=== PATIENT | female | born 1960 | race Caucasian/White ===

== ENCOUNTER 2018-12-16 11:15 | Emergency (ER) | payer BC, OTHER, SELFPAY ==
[2018-12-16] VITALS (35 sets, daily range): BP systolic 123–156; BP diastolic 74–125; PULSE 67–114; RESP 10–25; TEMP 36.6; O2SAT 95–99
[2018-12-16] MEDS: Normal Saline 1,000 ML 1000 ML IV (11:58)
[2018-12-16 12:21] LABS: Abs Immature Grans 0.02 k/cumm (0.0-0.09); Absolute Basophil Count 0.03 k/cumm (0.0-0.2); Absolute Eosinophil Count 0.08 k/cumm (0.0-0.7); Absolute Lymphocyte Count 1.98 k/cumm (1.2-3.4); Absolute Monocyte Count 0.36 k/cumm (0.11-0.7); Absolute Neutrophil Count 3.94 k/cumm (1.2-6.7); Basophils % 0.5; Eosinophils % 1.2; HCT 38.5 % (36.0-46.0); Immature Grans % 0.3; Lymphocytes % 30.9; Mean Corp. HGB Concentration 36.4 g/dL (32.0-36.0); Mean Corpuscular Hemoglobin 33.9 pg (27.0-33.0); Mean Corpuscular Volume 93.2 fL (80-95); Mean Platelet Volume 9.3 fL (8.0-11.0); Monocytes % 5.6; Neutrophils % 61.5; Platelet Count 331 x1000/uL (130-400); RBC 4.13 m/cumm (4.00-5.20); RBC Distribution Width 11.9 % (11.7-14.6); White Blood Cell Count 6.41 k/cumm (4.4-10.8)
[2018-12-16 12:46] LABS: ALT 35 U/L (14-59); AST 14 U/L (15-37); Albumin 3.9 g/dL (3.4-5.0); Alkaline Phosphatase 53 U/L (46-116); Anion Gap 11.7 mmol/L (3-11); BUN 17 mg/dL (7-18); Bilirubin, Total 0.4 mg/dL (0.2-1.0); CO2 25.3 mmol/L (21.0-32.0); CREATININE 0.82 mg/dL (0.55-1.02); Calcium 8.8 mg/dL (8.5-10.1); Chloride 98 mmol/L (98-107); Glucose 144 mg/dL (70-100); Magnesium 1.7 mg/dL (1.8-2.4); Potassium 3.4 mmol/L (3.5-5.1); Sodium 135 mmol/L (136-145); Total Protein 7.1 g/dL (6.4-8.2)
[2018-12-16 12:48] LABS: Troponin I < 0.05 ng/mL (0.00-0.06)
[2018-12-16 13:37] LABS: Bilirubin Negative (Negative); Blood Trace-intact (Negative); Clarity Clear (Clear); Glucose Negative (Negative); Ketones Negative (Negative); Leukocyte Esterase Negative (Negative); Nitrite Negative (Negative); Urobilinogen 0.2 EU/dL (Up TO 0.2); pH 5.5 (5-8)
[2018-12-16 13:55] LABS: Bacteria Negative HPF (Negative); C & S Indicated? No; Casts Negative LPF (Negative); Crystals Negative HPF (Negative); Epithelial Cells Negative HPF (Negative); Mucus Negative (Negative); Other Cells Rare Transitional (Negative); RBC 0-2 (0-2); WBC Negative HPF (0-5)
--- NOTE | 2018-12-16 15:02 | ED.GENADUL_ITS ---
Discharge Plan Disposition Patient Disposition: HOME Condition: Good Discharge Details Chief Complaint: Dizzy/Sync Clinical Impression: Syncope, Dehydration Primary Care Provider: Keara Tian ED Provider: Kiesha Arana Home Meds and New Rx's Prescriptions: Continued lisinopril 20 mg Tablet 20 mg PO HS RF: 0 Discharge Instructions Instructions: Dehydration (ED), Syncope (ED) Additional Instructions: Continue to push fluids by mouth. Continue daily medications as previously prescribed. Follow-up promptly with your primary care doctor for reevaluation. [facility] For any feeling of syncope have immediate reevaluation in the emergency room as discussed. Your evaluation in the emergency room today is reassuring Medical Decision Making Patient presents for episode of syncope last evening x2. Patient reports after syncopal episode she felt normal. Patient reports she awoke this morning after sleeping well and called her primary care doctor requesting evaluation in the office he recommended ER evaluation at this time. Patient ultimately had lab evaluation which shows no significant abnormality, multiple EKGs in the ER remain normal. PVCs were noted on EKG in the monitor however asymptomatic. Patient denies palpitation, difficulty breathing or shortness of breath or wheezing. Eating and drinking without difficulty. Patient was provided IV fluid as she is on a diuretic and does report poor fluid intake is baseline. Patient does report feeling mildly improved in energy after receiving IV fluid. Dehydration remains in the differential for syncope. Patient has no complaints of headache or dizziness. Does not feel she needs a head CT at this time which I do not feel is unreasonable. Troponin is negative. I discussed with this patient inpatient management for further evaluation of syncope however she does feel comfortable following up with her primary care doctor as an outpatient. Patient may require outpatient cardiac evaluation and further imaging studies however is feeling well and at her baseline at this time. Has been asymptomatic today and testing in the emergency room today is reassuring. This case was discussed and reviewed with my attending Dr. sutherland who agrees with plan of care management HPI General Date/Time Provider Initiated Documentation: 12/16/18 11:32 . HPI Narrative: Patient presents for complaints of syncope. Patient reports yesterday at 1025 at night she was sitting at her kitchen top stool and began to feel sweaty and clammy. Patient reports she ultimately slumped down to the ground and had a presyncopal episode. Patient reports she came to on the floor felt persistently weak and began to crawl toward the bathroom. Patient again had a second syncopal episode. Patient awoke had an episode of incontinence but symptoms have resolved. Patient reports she had no associated headache, dizziness, no nausea, vomiting. Patient's weakness had entirely resolved. Patient does live alone. Patient is aware of the time she had looked at the clock prior to and after she passed out. Patient does report she is not very good at drinking water and is compliant with diuretics. Patient awoke this morning feeling norm al. No chest pain difficulty breathing or shortness of breath or wheezing. Denies headache or dizziness at this time. Patient did on the second fall strike her head on the floor from a kneeling position. Patient is a small sore spot with palpation to the posterior head but no complaints of headache. Patient denies swelling in the legs, changes in urination, pain or dysuria. Patient denies abdominal pain. Patient ate normally this morning. Patient called her primary care doctor to arrange for follow-up and they recommended she come to the ER for evaluation. Related Data Home Medications Medication Instructions Recorded Confirmed lisinopril 20 mg PO HS 12/16/18 12/16/18 Allergies Allergy/AdvReac Type Severity Reaction Status Date / Time Cephalosporins Allergy Intermediate Skin Rash Unverified 12/16/18 12:20 General Stated Complaint: Dizzy/Sync MARLIN: 2 Review of Systems Review of Systems CONSTITUTIONAL: The patient denies fevers, chills. EYES: Denies vision changes, blurry vision, or eye pain. ENT: Denies hearing changes, tinnitus, vertigo, sore throat. CARDIAC: Denies chest pain, SOB. RESPIRATORY: Denies cough, sputum. Denies difficulty breathing. GASTROINTESTINAL: Denies abdominal pain, changes in bowel, vomiting or nausea. GENITOURINARY: Denies dysuria, or frequency of urination. MUSCULOSKELETAL: Denies Joint pain, gait changes. NEUROLOGIC: Denies headaches, Denies focal weakness. Denies numbness. INTEGUMENT: Denies rashes. PSYCHIATRIC: Denies behavior changes. Denies anxiety or depression. ENDOCRINOLOGY: Denies fatigue. PSYCHIATRY: Denies depression, agitation or anxiety All systems reviewed & are unremarkable except as noted in HPI and below PFSH Social History Smoking/Tobacco Use Status: Current every day Alcohol Intake: current Alcohol Intake frequency: 0-2 drinks per day Drug use: Never Do you feel safe in your relationship?: Yes Course Vital Signs Temperature 36.6 C 12/16/18 11:20 Pulse 108 H 12/16/18 11:20 Respiratory Rate 16 12/16/18 11:20 Blood Pressure 153/86 H 12/16/18 11:20 Pulse Oximetry 99 12/16/18 11:20 Temperature 36.6 C 12/16/18 11:20 Temperature Source Skin 12/16/18 11:20 Pulse 72 12/16/18 14:38 Pulse 74 12/16/18 14:10 Respiratory Rate 10 L 12/16/18 14:10 Respiratory Effort Non-Labored 12/16/18 12:00 Respiratory Depth Normal 12/16/18 12:00 Blood Pressure 148/87 H 12/16/18 14:38 Blood Pressure Mean 91 12/16/18 14:01 Blood Pressure Position Supine 12/16/18 11:20 Pulse Oximetry 96 12/16/18 14:10 Oxygen Delivery Method Room Air 12/16/18 11:20 Oxygen Flow Rate 0 12/16/18 11:20 Lab/Test Results Lab/Test Results: Laboratory Tests Range/Units 12/16/18 12/16/18 12/16/18 12:08 12:08 13:30 WBC (4.4-10.8) k/cumm 6.41 RBC (4.00-5.20) m/cumm 4.13 Hgb (12.0-15.5) g/dL 14.0 Hct (36.0-46.0) % 38.5 MCV (80-95) fL 93.2 MCH (27.0-33.0) pg 33.9 H MCHC (32.0-36.0) g/dL 36.4 H RDW (11.7-14.6) % 11.9 Plt Count (130-400) x1000/uL 331 MPV (8.0-11.0) fL 9.3 Immature Gran % 0.3 Neutrophils % 61.5 Lymphocytes % 30.9 Monocytes % 5.6 Eosinophils % 1.2 Basophils % 0.5 Absolute Neutrophils (1.2-6.7) k/cumm 3.94 Absolute Lymphocytes (1.2-3.4) k/cumm 1.98 Absolute Monocytes (0.11-0.7) k/cumm 0.36 Absolute Eosinophils (0.0-0.7) k/cumm 0.08 Absolute Basophils (0.0-0.2) k/cumm 0.03 Sodium (136-145) mmol/L 135 L Potassium (3.5-5.1) mmol/L 3.4 L Chloride (98-107) mmol/L 98 Carbon Dioxide (21.0-32.0) mmol/L 25.3 Anion Gap (3-11) mmol/L 11.7 H BUN (7-18) mg/dL 17 Creatinine (0.55-1.02) mg/dL 0.82 Estimated GFR/1.73 m2 (mL/min/1.73m2) >= 60.00 Glucose (70-100) mg/dL 144 H Calcium (8.5-10.1) mg/dL 8.8 Magnesium (1.8-2.4) mg/dL 1.7 L Total Bilirubin (0.2-1.0) mg/dL 0.4 AST (15-37) U/L 14 L ALT (14-59) U/L 35 Alkaline Phosphatase (46-116) U/L 53 Troponin I (0.00-0.06) ng/mL < 0.05 Total Protein (6.4-8.2) g/dL 7.1 Albumin (3.4-5.0) g/dL 3.9 Urine Color (Yellow) Yellow Urine Clarity (Clear) Clear Urine pH (5-8) 5.5 Ur Specific [place] (1.005-1.025) 1.010 Urine Protein (Negative) mg/dL Negative Urine Ketones (Negative) mg/dL Negative Urine Blood (Negative) Trace-intact H Urine Nitrite (Negative) Negative Urine Bilirubin (Negative) Negative Urine Urobilinogen (Up TO 0.2) EU/dL 0.2 Ur Leukocyte Esterase (Negative) Negative Urine RBC (0-2) 0-2 Urine WBC (0-5) HPF Negative Ur Epithelial Cells (Negative) HPF Negative Urine Crystals (Negative) HPF Negative Urine Bacteria (Negative) HPF Negative Urine Casts (Negative) LPF Negative Urine Mucus (Negative) Negative Urine Other (Negative) Rare transitional Ur Culture Indicated? No Urine Glucose (Negative) mg/dL Negative
== END 2018-12-16 15:43 | disposition home or self-care (01) ==
PROVIDERS: Emergency Provider Physician Assistant; PCP Family Medicine
DX: R55 Syncope and collapse (principal); E86.0 Dehydration
CPT/HCPCS: 36415; 80053; 93005; 96360; 99284; 81003; 81015; 83735; 84484; 85025; 93010

== ENCOUNTER 2018-12-23 02:38 | Outpatient (CLI) | payer BC, OTHER, SELFPAY ==
--- NOTE | 2019-01-12 14:03 | ZIOP_ITS ---
This was a ZIO patch ordered for syncope and collapse. Patient wore monitor for 13 days. Patient had a minimum heart rate of 61 bpm and maximum heart rate of 174 bpm and average heart rate of 88 bpm. There were no patient triggered events There were 5 episodes of supraventricular tachycardia with the longest lasting 12 beats. The maximum rate of these runs was 162 bpm There were no episodes of ventricular ectopy. There were no pauses of longer than 3 seconds or episodes of high-grade second- degree or third-degree heart. CC: Dictated by: IAM SOUTH MD Dictated:: 1403 <Electronically signed by Iam South M.D.> 01/12/19 1409 Transcribed Date: 01/12/19 Transcribed Time: 1403By: MOLLY
== END 2018-12-23 02:58 ==
PROVIDERS: PCP Family Medicine; Visit Provider Nurse Practitioner Family
DX: R55 Syncope and collapse (principal); I47.1 Supraventricular tachycardia
CPT/HCPCS: 0296T

== ENCOUNTER 2019-02-03 13:09 | Outpatient (CLI) | payer BC, OTHER, SELFPAY ==
--- NOTE | 2019-02-03 11:04 | DI.RAD_ITS ---
EXAM: XR KNEE LT 3V AP,LAT,MONA INDICATION: KNEE PAIN. COMPARISON: No exams were available for comparison TECHNIQUE: 2D digital imaging was performed. FINDINGS: There is mild periarticular spurring of the posterior patella. Joint spaces are otherwise well maint ained. The bones are intact and normally mineralized. Soft tissues are unremarkable. IMPRESSION: Minimal degenerative changes in the left knee.
== END 2019-02-03 13:29 ==
PROVIDERS: PCP Family Medicine; Visit Provider Student in an Organized Health Care Education/Training Program
DX: M25.562 Pain in left knee (principal); M17.12 Unilateral primary osteoarthritis, left knee
CPT/HCPCS: 73562

== ENCOUNTER 2019-08-11 18:50 | Emergency (ER) | payer BC, OTHER, SELFPAY ==
[2019-08-11] VITALS (11 sets, daily range): BP systolic 131–182; BP diastolic 69–106; PULSE 82–105; RESP 13–39; TEMP 36.8; O2SAT 94–98
--- NOTE | 2019-08-11 19:44 | DI.RAD_ITS ---
EXAM: XR CHEST 2V PA LATERAL CLINICAL HISTORY: cough TECHNIQUE: 2D digital imaging was performed. COMPARISON: No exams were available for comparison FINDINGS: MEDIASTINUM: Normal. HEART: Normal. PULMONARY VASCULATURE: Normal. LUNGS: Clear. Mild hyperinflation. PLEURAL SPACE: No pleural effusion or pneumothorax. BONE:Mild degenerative disc changes in the thoracic spine. OTHER FINDINGS:EKG leads overlie the chest. IMPRESSION: Mild hyperinflation. No acute pulmonary findings. DATA REPOSITORY: RADIATION DOSE DELIVERED:
--- NOTE | 2019-08-11 19:47 | DI.RAD_ITS ---
EXAM: XR SOFT TISSUE NECK CLINICAL HISTORY: neck tightness. TECHNIQUE: 2D digital imaging was performed. COMPARISON: No exams were available for comparison FINDINGS: BONES: No acute fracture is present. No bony destructive lesion is seen. There are advanced degener ative disc changes seen at C4-5 and C5-6. C6-7 level is somewhat obscured by the shoulders. Facet d egenerative changes are also seen. The degenerative changes cause straightening of the normal cervic al lordosis. SOFT TISSUE: Normal. No abnormal gas collection or prevertebral swelling is seen. The epiglottis bryan ears normal. There is no airway narrowing. The lung apices appear clear. IMPRESSION: Degenerative changes in the spine. No acute abnormality. DATA REPOSITORY: RADIATION DOSE DELIVERED:
[2019-08-11 19:49] LABS: Absolute Basophil Count 0.04 k/cumm (0.0-0.2); Absolute Eosinophil Count 0.14 k/cumm (0.0-0.7); Absolute Lymphocyte Count 1.75 k/cumm (1.2-3.4); Absolute Monocyte Count 0.46 k/cumm (0.11-0.7); Absolute Neutrophil Count 3.48 k/cumm (1.2-6.7); Basophils % 0.7; Eosinophils % 2.4; HCT 38.7 % (36.0-46.0); Lymphocytes % 29.8; Mean Corp. HGB Concentration 36.2 g/dL (32.0-36.0); Mean Corpuscular Hemoglobin 33.8 pg (27.0-33.0); Mean Corpuscular Volume 93.5 fL (80-95); Mean Platelet Volume 10.2 fL (8.0-11.0); Monocytes % 7.8; Neutrophils % 59.3; Platelet Count 209 x1000/uL (130-400); RBC 4.14 m/cumm (4.00-5.20); RBC Distribution Width 12.4 % (11.7-14.6); White Blood Cell Count 5.87 k/cumm (4.4-10.8)
--- NOTE | 2019-08-11 19:59 | ED.GENADUL_ITS ---
Discharge Plan Disposition Patient Disposition: HOME Condition: Stable Discharge Details Chief Complaint: RespSymp Clinical Impression: COPD with acute bronchitis Primary Care Provider: Keara Tian ED Provider: Kiesha Arana Home Meds and New Rx's Prescriptions: New prednisone 20 mg tablet 40 mg PO DAILY Qty: 8 RF: 0 Continued hydrochlorothiazide 12.5 mg tablet 12.5 mg PO DAILY RF: 0 aspirin 81 mg tablet,delayed release (DR/EC) 81 mg PO DAILY RF: 0 lisinopril 20 mg Tablet 20 mg PO HS RF: 0 bupropion HCl [Wellbutrin SR] 150 mg Tablet Sustained-Release 12 Hr 150 mg PO BID RF: 0 Discharge Instructions Instructions: Acute Bronchitis (ED), COPD (Chronic Obstructive Pulmonary Disease) (DC) Additional Instructions: Use inhaler with spacer every 4-6 hours for symptomatic relief. Continue humidifier by the bedside. Use steroids as prescribed. Plan to dose steroids in the morning with food. You will receive a dose of this medication tonight. If you like to push your morning dose back to the afternoon tomorrow then begin in the morning the following day Continue your daily medications. Rest activities as tolerated. Have follow-up with your primary care doctor as planned on Friday. Return for any worsening, concerns or alarming symptoms sooner if needed Medical Decision Making Is a 59-year-old woman presenting to the emergency room with complaints of chest tightness in addition to sensation of mucus in her throat. Patient reports she stopped smoking 68 days ago. Patient reports cough since she discontinued smoking. Patient reports she is having difficulty sleeping at night due to sensation of throat tightness and chest tightness anteriorly. Patient denies any chest pain. Denies diaphoresis. Denies radicular chest pain or pleuritic component. Patient does report that her symptoms are alleviated when eating. Patient has been eating and drinking without difficulty. Patient reports denies shortness of breath however she reports some sensation of tightness and wheezing when exhaling. Patient denies nausea, vomiting or abdominal pain. She does report some post tussive gagging. Patient reports she did see her PCP for these complaints multiple times. She did take 2 courses of antibiotics including a course of azithromycin in the second week of June without relief and then another course of antibiotics thereafter again with no relief. Patient saw PCP again who prescribed inhaler which again she found on relieving. They discussed the course of prednisone however given Covid pandemic did not pursue. Patient denies any personal cardiac history. Patient reports she felt this was likely due to smoking cessation however this has now lasted approximately 2 months and has been unrelieved. Patient denies any fevers or chills however does report night sweats. Denies any recent travel. Denies obvious covert exposures. Denies headache, dizziness, weakness. Patient denies any palpitations. Patient is a 40-year smoking history. Patient does report she has good days during which she has minimal symptoms. She was able to bike ride 15 miles on Friday without any difficulty. Patient does report eating alleviates her symptoms. Initial evaluation of the patient reveals comfortable appearing patient in no apparent distress with no increased respiratory effort. Patient speaking in full sentences. Patient's initial vital signs she is notably hypertensive with a blood pressure 182/93 heart rate of 91 breathing easily with no hypoxia noted. Patient's exam of her pharynx reveals no obvious erythema or evident mucus. Patient's breath sounds are clear. Cardiovascular exam normal. Abdominal exam normal. No peripheral edema present. Patient appears nontoxic. We will plan to check EKG, labs including d-dimer chest x-ray and soft tissue x- ray of her neck given she does feel what she describes as almost a foreign body sensation in her throat which she describes as sensation of mucus. I suspect that likely the symptoms are secondary to her recent smoking cessation however will rule out ACS, PE or pneumonia. I doubt pneumonia given her 2 recent courses of antibiotics without improvement. Patient's breath sounds are currently clear. 191 -initial EKG reveals sinus rhythm with a rate of 91. Normal axis. No ST segment changes. QTC of 431. This was reviewed with Diana Doty. Patient's labs reveal no leukocytosis. No sign of anemia. CMP reviewed within normal limits, mild bump to BNP and creatinine. Patient's LFTs are normal, initial troponin is normal. D-dimer is normal Chest x-ray reveals nonspecific hyperinflation differential diagnosis includes COPD, reactive airway or air trapping from an upper respiratory infection. No infiltrate or pleural effusion or edema present. Soft tissue the neck reveals unremarkable soft tissue findings, degenerative spinal changes. Patient feels well at this time. Patient's vital signs remained stable. Patient made aware of her lab results as well as x-ray imaging. I offered patient repeat troponin after discussion of her initial labs. Patient does not feel she needs to stay for repeat troponin as she has a very low suspicion of ACS as the symptoms have been persistent for 2 months. I feel this is not unreasonable. Did recommend prompt follow-up with PCP and return for any alarming symptoms. Of note patient does take lisinopril but cough seems unlikely to be related to lisinopril she has been on this medication for 3 years has had no issues in the past and her descriptions of the cough are not dry. Patient agrees this plan of care. I do suspect this patient's symptoms are the result of her recent smoking cessation likely COPD with acute bronchitis. I discussed my concerns with the patient. Patient has completed 2 full courses of antibiotics as well as use of albuterol inhaler with spacer without significant relief. Her PCP had discussed steroid treatment with her but they chose to hold. At this time I believe this is reasonable to attempt. I did offer this to the patient and she also agrees with this plan of care. Will trial 40 mg daily for the next 5 days. Patient does have a PCP follow-up this coming Friday at which time she plans to begin to decrease Wellbutrin dosing. Patient feels very comfortable with this plan of care at this time. She does request discharge home at this time. The patient was stable and requested discharge. Prior to discharge, my usual and customary return precautions were reviewed with the patient - this included follow-up instructions and reasons to return to the Emergency Department if conditions worsens, does not improve as expected, or other new concerns arise. HPI General Date/Time Provider Initiated Documentation: 08/11/19 18:54 . HPI Narrative: This is a 59-year-old patient presenting to the emergency room for complaints of chest tightness. Patient reports chest tightness for the last several months. Patient reports she stopped smoking 68 days ago. Patient reports she has had cough since that time. Patient reports sensation of mucus or foreign body being stuck in her throat. Patient reports she has had several nights where she experiences throat tightness. Patient denies any obvious obstruction of her airway. Patient reports she is still able to breathe. Patient reports she is been eating and drinking without difficulty. Patient denies any obvious swelling of her lips tongue or throat. Patient reports she has chest tightness which she experiences in the mid chest. Denies associated chest pain. Denies diaphoresis. Denies obvious difficulty breathing. Denies any exertional component. Denies back pain. No radicular symptoms. Patient does report mild nausea and gagging when she experiences coughing fits. Patient reports she has seen her PCP for this complaint multiple times. She did take and complete a full course of Z-Khari June 17, subsequently she was provided another antibiotic both which were unhelpful. Patient was reevaluated by PCP and provided an inhaler also unhelpful. Patient reports they discussed the possibility of a steroid prescription however prefer to hold on the prescription given to Carlos amaya currently. Patient reports she was able to ride her bike 15 miles on Friday without any difficulty, she does report intermittent good days but then reports difficulty sleeping at night due to her symptoms. Patient reports she takes aspirin every other day, HCTZ and lisinopril. Patient denies any other daily medications. Patient denies a family history of cardiac disease. Denies a personal history of cardiac disease. Denies any personal or family history of DVT or blood clots or stroke. Patient was a 40-year smoker. Patient is also currently taking Wellbutrin. No other concerns or complaints at this time. Patient reports alleviation of symptoms when eating Related Data Home Medications Medication Instructions Recorded Confirmed lisinopril 20 mg PO HS 12/16/18 08/11/19 hydrochlorothiazide 12.5 mg tablet 12.5 mg PO DAILY 02/03/19 08/11/19 aspirin 81 mg tablet,delayed 81 mg PO DAILY 03/10/19 08/11/19 release bupropion HCl [Wellbutrin SR] 150 mg PO BID 08/11/19 08/11/19 prednisone 40 mg PO DAILY #8 tab 08/11/19 Previous Rx's Medication Instructions Recorded prednisone 40 mg PO DAILY #8 tab 08/11/19 Allergies Allergy/AdvReac Type Severity Reaction Status Date / Time Cephalosporins Allergy Intermediate Skin Rash Verified 08/11/19 19:09 General Stated Complaint: RespSymp MARLIN: 3 Review of Systems All systems reviewed & are unremarkable except as noted in HPI and below Constitutional Constitutional: Denies chills, Denies excessive sweating, Denies fatigue, Denies fever(s), Denies headache(s), Denies malaise and Reports night sweats ENT Ears, Nose, Mouth, and Throat: Denies dysphagia and Denies headache(s) Cardiovascular Cardiovascular: Denies chest pain, Denies chest pain at rest, Denies chest pain with activity, Denies diaphoresis, Denies syncope, Denies rapid heart rate, Denies lightheadedness, Denies radiating jaw, neck or arm pain, Denies palpitations, Denies dyspnea and Denies dyspnea on exertion Respiratory Respiratory: Reports cough, Denies dyspnea, Denies dyspnea on exertion and Reports wheezing Gastrointestinal Gastrointestinal: Denies abdominal pain, Denies cramping, Denies dysphagia, Denies diarrhea and Denies vomiting Genitourinary Genitourinary: Denies difficulty voiding, Denies dysuria and Denies urinary incontinence Neurologic Neurologic: Denies syncope and Denies headache(s) Endocrine Endocrine: Denies excessive sweating, Denies fatigue and Denies palpitations Allergic/Immunologic Allergic/Immunologic: Reports wheezing [facility] Social History Smoking/Tobacco Use Status: Former Tobacco Use Tobacco: How many years used: 40 Alcohol Intake: current Alcohol Intake frequency: 0-2 drinks per day Drug use: Never Current gender identity: female Do you feel safe at home: Yes Do you feel safe in your relationship?: Yes Exam Narrative Exam Narrative: CONST: Healthy appearing patient, in no acute distress. Well hydrated. Alert and oriented. HENMT: Head nomocephalic, normal to inspection. Atraumatic. Hearing grossly normal. External ear canal no erythema or swelling. TM normal bilaterally. Nose normal to inspection. No rhinnorhea. Normal facial exam. Oral mucosa normal. Tounge normal. Dentition normal. Normal posterior oropharynx. Uvula midline. EYES: General normal appearance. Alignment normal. Eyelids normal. Conjunctiva normal. Sclera normal. PERRL. NECK: Normal visual inspection. FROM. No lymphadenopathy. Trachea midline. No Midline tenderness. CHEST: Normal insepection of the chest. RESP: Normal respiratory effort. Speaking full sentences. No cough. No wheezing. No retractions. Clear to auscaltation. Breath sound equal and present bilaterally. CARDIO: No JVD. Normal PMI. Regular Rate. Regular Rhythm. Normal peripheral pulses. GI: Normal inspection of abdomen. No distension. Soft. Nontender. Bowel sounds present in all 4 quadrants. No rebound. No gaurding. MUSCULOSKELETAL: Normal Gait. FROM of all extremities. Distal neurovascularly intact. Sensation intact distally. No lower extremity edema SKIN: Normal. Dry. No rashes. NEURO: Alert and awake. Speech clear. PSYCH: Normal affect. Cooperative. Course Vital Signs Vital signs: Vital Signs Temperature 36.8 C 08/11/19 18:57 Pulse 91 H 08/11/19 18:57 Respiratory Rate 15 08/11/19 18:57 Blood Pressure 182/93 H 08/11/19 18:57 Pulse Oximetry 98 08/11/19 18:57 Temperature 36.8 C 08/11/19 18:57 Temperature Source Temporal Artery Scan 08/11/19 18:57 Pulse 91 H 08/11/19 18:57 Respiratory Rate 15 08/11/19 18:57 Respiratory Effort 08/11/19 19:07 Respiratory Depth Normal 08/11/19 19:07 Blood Pressure 182/93 H 08/11/19 18:57 Blood Pressure Position Sitting 08/11/19 18:57 Pulse Oximetry 98 08/11/19 18:57 Oxygen Delivery Method Room Air 08/11/19 18:57 Oxygen Flow Rate 0 08/11/19 18:57 Lab/Test Results Lab/Test Results: Laboratory Tests Range/Units 08/11/19 19:19 WBC (4.4-10.8) k/cumm 5.87 RBC (4.00-5.20) m/cumm 4.14 Hgb (12.0-15.5) g/dL 14.0 Hct (36.0-46.0) % 38.7 MCV (80-95) fL 93.5 MCH (27.0-33.0) pg 33.8 H MCHC (32.0-36.0) g/dL 36.2 H RDW (11.7-14.6) % 12.4 Plt Count (130-400) x1000/uL 209 MPV (8.0-11.0) fL 10.2 Immature Gran % % 0.0 Neutrophils % 59.3 Lymphocytes % 29.8 Monocytes % 7.8 Eosinophils % 2.4 Basophils % 0.7 Absolute Neutrophils (1.2-6.7) k/cumm 3.48 Absolute Lymphocytes (1.2-3.4) k/cumm 1.75 Absolute Monocytes (0.11-0.7) k/cumm 0.46 Absolute Eosinophils (0.0-0.7) k/cumm 0.14 Absolute Basophils (0.0-0.2) k/cumm 0.04
--- NOTE | 2019-08-11 20:01 | DI.VRAD_ITS ---
PROCEDURE INFORMATION: Exam: XR Chest, 2 Views Exam date and time: 08/11/2019 7:45 PM Age: 59 years old Clinical indication: Cough TECHNIQUE: Imaging protocol: XR of the chest Views: 2 views. COMPARISON: No relevant prior studies available. FINDINGS: Lungs: Nonspecific bilateral [id number] hyperinflation. This may represent a process such as COPD. This could be secondary to air trapping from an upper respiratory infection or reactive airway disease. No focal lung consolidation. Pleural space: No pleural effusions. Heart/Mediastinum: Normal heart size. Bones/joints: Degenerative thoracic spine changes. IMPRESSION: 1. Nonspecific hyperinflation. Differential diagnosis would include COPD, reactive airway disease, or air trapping from an upper respiratory infection. 2. No infiltrates, pleural effusions, or edema. Dictated and Authenticated by: Yamil Ferguson MD. Ordering:LEAH Pop MD
--- NOTE | 2019-08-11 20:02 | DI.VRAD_ITS ---
PROCEDURE INFORMATION: Exam: XR Soft Tissue Neck Exam date and time: 08/11/2019 7:47 PM Age: 59 years old Clinical indication: Other: Neck tightness TECHNIQUE: Imaging protocol: XR of the soft tissues of the neck. COMPARISON: No relevant prior studies available. FINDINGS: Airway: Normal. No abnormal narrowing. Soft tissues: Prevertebral soft tissues are unremarkable. No soft tissue swelling. Pharyngeal airspace is unremarkable. Epiglottis is normal. Cervical soft tissues are unremarkable. No mass. Bones/joints: Degenerative cervical spine changes. 4 mm degenerative anterolisthesis of C2 on C3. Severe degenerative disc space narrowing at C4-C5 and C5-C6. Lung apices: Lung apices are clear. IMPRESSION: 1. Degenerative cervical spine disease. 2. Normal cervical region soft tissues. 3. Pharyngeal and parapharyngeal soft tissues are unremarkable. Dictated and Authenticated by: Yamil Ferguson MD. Ordering:LEAH Pop MD
[2019-08-11 20:41] LABS: D-Dimer 275 ng/mlFEU (<500)
[2019-08-11 21:06] LABS: ALT 41 U/L (14-59); AST 17 U/L (15-37); Albumin 3.9 g/dL (3.4-5.0); Alkaline Phosphatase 48 U/L (46-116); Anion Gap 10.1 mmol/L (3-11); BUN 25 mg/dL (7-18); Bilirubin, Total 0.4 mg/dL (0.2-1.0); CO2 23.9 mmol/L (21.0-32.0); CREATININE 1.04 mg/dL (0.55-1.02); Calcium 8.7 mg/dL (8.5-10.1); Chloride 102 mmol/L (98-107); Estimated GFR 54.43 (mL/min/1.73m2); Glucose 101 mg/dL (74-106); Potassium 3.8 mmol/L (3.5-5.1); Sodium 136 mmol/L (136-145)
[2019-08-11 21:07] LABS: Troponin I < 0.05 ng/Ml (<0.06)
[2019-08-11] MEDS: predniSONE 20 MG TAB 40 MG PO (22:07)
== END 2019-08-11 22:20 | disposition home or self-care (01) ==
LOC: ER 22:19
PROVIDERS: Emergency Provider Physician Assistant; PCP Family Medicine
DX: J44.0 Chronic obstructive pulmonary disease with (acute) lower respiratory infection (principal); J20.9 Acute bronchitis, unspecified; R09.89 Other specified symptoms and signs involving the circulatory and respiratory systems; F17.201 Nicotine dependence, unspecified, in remission
CPT/HCPCS: 36415; 80053; 93005; 99285; 70360; 71046; 84484; 85025; 85379; 93010; 99284; J7512

== ENCOUNTER 2019-08-17 10:43 | Outpatient (CLI) | payer BC, OTHER, SELFPAY ==
[2019-08-18 17:18] LABS: COVID-19 RT-PCR UVMMC Result Negative (Negative)
== END 2019-08-17 11:03 ==
PROVIDERS: PCP Family Medicine; Visit Provider Nurse Practitioner Family
DX: Z11.59 Encounter for screening for other viral diseases (principal)
CPT/HCPCS: U0003

== ENCOUNTER 2019-12-23 04:15 | Outpatient (CLI) | payer BC, OTHER, SELFPAY ==
[2019-12-23 11:40] LABS: TSH (W/Ref FT4) 1.86 uIU/mL (0.36-3.74)
== END 2019-12-23 04:35 ==
PROVIDERS: PCP Family Medicine; Visit Provider Surgery
DX: R53.83 Other fatigue (principal); R63.5 Abnormal weight gain
CPT/HCPCS: 36415; 84443

== ENCOUNTER 2019-12-31 07:26 | Outpatient (CLI) | payer BC, OTHER, SELFPAY ==
[2020-01-02 02:50] LABS: COVID-19 RT-PCR Result NEGATIVE (Negative)
== END 2019-12-31 07:46 ==
PROVIDERS: PCP Family Medicine; Visit Provider Surgery
DX: Z11.59 Encounter for screening for other viral diseases (principal); Z01.818 Encounter for other preprocedural examination
CPT/HCPCS: U0003

== ENCOUNTER 2020-01-03 07:08 | Day surgery (SDC) | payer BC, OTHER, SELFPAY ==
[2020-01-03 07:19] VITALS: BP 145/115; PULSE 97; RESP 18; TEMP 36.7; O2SAT 97
[2020-01-03] MEDS: Lactated Ringers 1,000 ML 80 ML IV (07:40)
--- NOTE | 2020-01-03 08:48 | STOM_PTH ---
PATIENT: Ling Chandra LOC: [facility] U#:[id number] AGE/SX: 59/F ROOM: RE01/03/[address]: Keerthi Wood : 1960 BED: DIS: 01/03/2020 SPEC #: [id number] RECD: 01/03/20 12:51 STATUS: JOHNNY RE #: [id number] LISA: 01/03/20 08:[address]: Keerthi Wood DEPT: Surgical Specimen RECD BY: Shital Mendosa ENTERED: 01/03/20 12:52 SP TYPE: STOMACH OTHR DR: Keara Tian Tissues: 1 - BIOPSY BOWEL 2 - STOMACH BIOPSY 3 - STOMACH BIOPSY 4 - ESOPHAGUS BIOPSY 5 - ESOPHAGUS BIOPSY 6 - BIOPSY BOWEL Procedures: GROSS AND MICRO LEVEL 4 Comments: [id number]
--- NOTE | 2020-01-03 09:36 | W.PM.DSUDISC ---
Discharge Plan Disposition Patient Disposition: HOME Condition: Good Discharge Details Reason For Visit: stomach and colon scope Attending Provider: Keerthi Wood Primary Care Provider: Keara Tian Home Meds and New Rx's Prescriptions: New pantoprazole [Protonix] 40 mg tablet,delayed release (DR/EC) 40 mg PO DAILY Qty: 30 RF: 12 sucralfate [Carafate] 1 gram tablet 1 g PO QACHS Qty: 120 RF: 12 Continued cetirizine-pseudoephedrine [Zyrtec-D] 5-120 mg tablet extended release 12 hr 1 tab PO BID RF: 0 fluticasone propion-salmeterol [Advair Diskus] 250-50 mcg/dose blister with device 1 inh inhalation BID RF: 0 albuterol sulfate [ProAir HFA] 90 mcg/actuation HFA aerosol inhaler 2 puff inhalation Q6H PRNRF: 0 fluticasone propionate [Allergy Relief (fluticasone)] 50 mcg/actuation spray,suspension 1 spray intranasal BID RF: 0 clobetasol 0.05 % cream 1 applic topical DAILY RF: 0 lisinopril 20 mg Tablet 20 mg PO HS RF: 0 bupropion HCl [Wellbutrin SR] 150 mg Tablet Sustained-Release 12 Hr 150 mg PO BID RF: 0 Discontinued aspirin 81 mg tablet,delayed release (DR/EC) 81 mg PO .Every other day RF: 0 omeprazole 20 mg capsule,delayed release(DR/EC) 20 mg PO DAILY RF: 0 bisacodyl [Dulcolax (bisacodyl)] 5 mg tablet,delayed release (DR/EC) 5 mg PO ONCE Qty: 4 RF: 0 polyethylene glycol 3350 17 gram/dose powder 17 g PO ONCE Qty: 238 RF: 0 Discharge Instructions Additional Instructions: Findings:PUD/gastritis/ulcer/esophagitis lg colon polyp Continue with lifestyle modifications: no alcohol, tobacco products, Aspirin or NSAID's (ibuprofen, Motrin, Naprosyn, aleve, etc), soda pop/any carbonated beverages, caffeine (including tea & chocolate), and acidic foods, (tomatoes, citrus, onions, peppermints) spicy or fried/fatty foods. Do not lie down for 30 minutes after eating, and do not eat 2 hours prior to bedtime. Avoid wearing tight fitting clothing/ belts Follow up:2-3 wks Repeat scope in ~3yrs- path pd Please call if you develop: fevers >101.5 Nausea or Vomiting Abdominal pain that is not transient DAY SURGERY UNIT POST COLONOSCOPY INSTRUCTIONS 1. Because there will be medication in your system for the next 24 hours, you may feel a little sleepy. Your coordination will be affected. Therefore: a. Do not drive or operate dangerous equipment for 24 hours. b. Do not drink alcohol beverages for 24 hours (not even beer). c. Plan to go home and rest for the day. 2. Generally there are no restrictions on your activity after a day or so has gone by, but you may feel a bit fatigued for a few days. 3 After you arrive home you may have a light meal and return to a normal diet as you can tolerate it without feeling sick to your stomach. 4. After surgery, you may feel pain or discomfort. This should be only transient, but if it persists please contact your doctor. 5. If there are any questions regarding the findings of your procedure, please feel free to contact your doctor. 6. If you are unable to contact your doctor with a problem, contact the hospital at [phone]. 7. Continue all your regular medications unless directed otherwise. I understand the above instructions and have no questions. Signature of Patient or Responsible Adult Escort Date/Time Name of Responsible Adult Escort Signature of Nurse Date/Time Activity:: No lifting over 20 pounds or strenuous activity x24 hours Diet:: Small light meals x24 hours Discharge Orders Discharge Orders: Discharge Order (Routine); Ordered 01/03/20 Ordered By: Keerthi Wood DS: Diagnosis Discharge Diagnosis (1) PUD (peptic ulcer disease): Status: Chronic (2) Gastritis determined by endoscopy: Status: Acute (3) Erosive esophagitis: Status: Acute (4) Diverticulosis: Status: Acute (5) Adenomatous colon polyp: Status: Acute
--- NOTE | 2020-01-03 09:42 | W.PM.ENDDOP ---
Date of service: 01/03/20 Time of Service: 09:42 Endoscopy Report DATE OF PROCEDURE: 01/03/20 PRE-OP DIAGNOSIS: epigasric pain/reflux POST-OP DIAGNOSIS: other (Esophagitis, gastritis, peptic ulcer disease, ulcers) PROCEDURE: EGD and Bx SURGEON: Keerthi Wood ANESTHESIA: GETA ESTIMATED BLOOD LOSS: 1 PATHOLOGY: other COMPLICATIONS: None DISPOSITION: same day PROCEDURE DESCRIPTION: After informed consent was obtained the patient was take to the procedure room and placed in a supine position. Monitors were applied and a time out was done. The patients name, date of , procedure type, allergies to medications and metal in their body was reviewed. A bite block was placed and the patient was sedated. Once sedated and comfortable the gastroscope was advanced through the oropharynx which was grossly normal into the esophagus. The proximal and mid-esophagus were nl. In the distal esophagus there was no: Esophageal diverticula strictures or varices noted. She definitely has moderate esophagitis. There is no signs of Mackay's. Biopsies were taken. There is no hiatal hernia. The scope was advanced into the stomach and through the pylorus into the 3rd portion of the duodenum. The duodenum was noted to be nl. Biopsies were done. The scope was retracted back into the stomach and biopsies were done to rule out H. pylori. There were several small punctate ulcers along the greater curvature. There are no signs of active bleeding or infections. Biopsies were taken. All specimens are retrieved and no bleeding is noted. The scope was retroflexed. The cardia and fundus were noted to be normal. There is hiatal hernia noted. The scope was retracted back into the esophagus and biopsies were done of the GE junction to rule out Mackay's. The Z line was regular. The GE junction was at 38 cm. The scope was withdrawn. Patient tolerated rated this procedure well. Scopes are exchanged. Please see the colonoscopy report in a separate dictation.
--- NOTE | 2020-01-03 09:45 | W.COLOREPORT ---
Date of service: 01/03/20 Time of Service: 08:30 Colonoscopy Report Retraction Time: With12 Procedure Description: After informed consent was obtained the patient was taken to the procedure room and placed in a left decubitous position. Monitors were applied and a time out was done. The patients name, date of , procedure, allergies to medications and metal in their body was reviewed. The patient was then sedated. Once sedated and comfortable a rectal exam was done. External exam was normal. Internal exam revealed a normal sphincter tone and no palpable masses. The scope was then introduced and retrofelexed. No internal hemorrhoids were identified. The scope was then advanced to the cecum w/out difficulty. The TI and appendiceal orifice were identified. The prep was good. The scope was then slowly retracted over 12 minutes back into the rectum. Polyps were removed: She had a large greater than 1 cm polyp removed from the rectum. It was removed with a hot snare. Specimen was retrieved and no bleeding is noted. She does have a few small large mouth diverticula. Majority of these are confined to the sigmoid colon. But she does have a few diverticula that carry all the way over to the right side. There are no signs of active bleeding or infection. The mucosa is otherwise pink and healthy, as is the vasculature.. The scope was removed and the patient was woken up and taken back to Same day surgery in stable condition. The patient tolerated the procedure well and there were no immediate complications. Follow up: The patient should follow up in 3-5 years, path pd- unless they develop changes in bowel habits or other new gastrointestinal complaints.
[2020-01-03] MEDS: Pantoprazole 40 MG VIAL IVP (09:48)
[2020-01-03] MEDS: Normal Saline Flush 10 ML SYR IV (09:51)
[2020-01-03 09:55] VITALS: BP 145/98; PULSE 87; RESP 18; TEMP 35.9; O2SAT 97
== END 2020-01-03 10:25 | disposition home or self-care (01) ==
PROVIDERS: PCP Family Medicine; Visit Provider Surgery
PROC: (CPT 45385; principal; 2020-01-03 08:00)
DX: Z12.11 Encounter for screening for malignant neoplasm of colon (principal); K29.70 Gastritis, unspecified, without bleeding; K25.9 Gastric ulcer, unspecified as acute or chronic, without hemorrhage or perforation; K20.9 Esophagitis, unspecified; K57.30 Diverticulosis of large intestine without perforation or abscess without bleeding; D12.8 Benign neoplasm of rectum
CPT/HCPCS: 45385; 43239; 88305; J2704

== ENCOUNTER 2020-12-06 08:13 | Outpatient (REF) | payer OTHER, SELFPAY ==
[2020-12-06 15:36] LABS: ALT 52 U/L (14-59); AST 21 U/L (15-37); Albumin 4.1 g/dL (3.4-5.0); Alkaline Phosphatase 60 U/L (46-116); Anion Gap 11.8 mmol/L (3-11); BUN 15 mg/dL (7-18); Bilirubin, Total 0.5 mg/dL (0.2-1.0); CO2 25.2 mmol/L (21.0-32.0); Calcium 9.2 mg/dL (8.5-10.1); Calculated LDL 157 mg/dL (<100); Chloride 106 mmol/L (98-107); Cholesterol 221 mg/dL (<200); Estimated GFR 56.75 (mL/min/1.73m2); Glucose 100 mg/dL (74-106); HDL Cholesterol 46 mg/dL (40-60); Potassium 4.3 mmol/L (3.5-5.1); Sodium 143 mmol/L (136-145); Total Protein 6.9 g/dL (6.4-8.2); Triglyceride 94 mg/dL (<150)
== END 2020-12-06 08:14 | disposition home or self-care (01) ==
LOC: NCHCN 08:13
PROVIDERS: PCP Family Medicine; Visit Provider Nurse Practitioner Family
DX: I10 Essential (primary) hypertension (principal)
CPT/HCPCS: 80053; 80061

== ENCOUNTER 2020-12-13 11:23 | Outpatient (REF) | payer OTHER, SELFPAY ==
--- NOTE | 2020-12-13 09:00 | PAPFT_PTH ---
PATIENT: Ling Chandra LOC[facility][id number] AGE/SX: 60/F ROOM: RE12/13/[address]: Keara Tian : 1960 BED: DIS: 12/13/2020 SPEC #: [id number] RECD: 12/13/20 18:33 STATUS: JOHNNY REQ #: [id number] LISA: 12/13/20 09:[address]: Keara Tian DEPT: [facility] Cytology RECD BY: Shital Mendosa Tissues: 1 - CX/ENDOCX FOR PAP SMEARS Procedures: PAP THIN PREP/UVM Screening HPV DNA PROBE Comments: [id number]
== END 2020-12-13 11:24 | disposition home or self-care (01) ==
LOC: NCHCN 11:23
PROVIDERS: PCP Family Medicine; Visit Provider Family Medicine
DX: Z00.00 Encounter for general adult medical examination without abnormal findings (principal); Z12.4 Encounter for screening for malignant neoplasm of cervix; Z01.419 Encounter for gynecological examination (general) (routine) without abnormal findings; Z11.51 Encounter for screening for human papillomavirus (HPV)
CPT/HCPCS: 88142; 87624

== ENCOUNTER 2021-01-29 02:30 | Outpatient (CLI) | payer OTHER, SELFPAY ==
[2021-01-29 07:51] LABS: Abs Immature Grans 0.01 10^3/uL (0.0-0.06); Absolute Basophil Count 0.04 10^3/uL (0.0-0.2); Absolute Eosinophil Count 0.21 10^3/uL (0.0-0.7); Absolute Lymphocyte Count 1.71 10^3/uL (1.2-3.4); Absolute Monocyte Count 0.43 10^3/uL (0.1-0.8); Absolute Neutrophil Count 3.35 10^3/uL (1.2-6.7); Basophils % 0.7; Eosinophils % 3.7; HCT 35.8 % (36.0-46.0); HGB 12.5 g/dL (11.2-15.7); Immature Grans % 0.2; Lymphocytes % 29.7; MCH 33.7 pg (27.0-33.0); MCHC 34.9 % (32.0-36.0); MCV 96.5 fL (80-95); MPV 9.3 fL (8.0-11.0); Monocytes % 7.5; Neutrophils % 58.2; Nucleated RBC 0 %; Platelet Count 287 10^3/uL (130-400); RBC 3.71 10^6/uL (3.93-5.22); RDW 11.6 % (11.7-14.6); WBC 5.75 10^3/uL (4.4-10.8)
== END 2021-01-29 02:31 | disposition home or self-care (01) ==
LOC: LBO 02:30
PROVIDERS: PCP Family Medicine; Visit Provider Surgery
DX: K22.10 Ulcer of esophagus without bleeding (principal); K27.9 Peptic ulcer, site unspecified, unspecified as acute or chronic, without hemorrhage or perforation; J44.9 Chronic obstructive pulmonary disease, unspecified
CPT/HCPCS: 36415; 85025

== ENCOUNTER 2021-02-21 02:26 | Outpatient (CLI) | payer OTHER, SELFPAY ==
[2021-02-21 13:11] LABS: Source Nasal/Nares
[2021-02-21 17:10] LABS: COVID-19 PCR Negative (Negative)
== END 2021-02-21 02:27 | disposition home or self-care (01) ==
LOC: LBO 02:26
PROVIDERS: PCP Family Medicine; Visit Provider Surgery
DX: Z20.822 Contact with and (suspected) exposure to COVID-19 (principal); Z01.818 Encounter for other preprocedural examination
CPT/HCPCS: 87635

== ENCOUNTER 2021-02-23 07:05 | Day surgery (SDC) | payer BC, OTHER, SELFPAY ==
--- NOTE | 2021-02-21 12:07 | W.PM.DSUDISC ---
Discharge Plan Disposition Patient Disposition: HOME Condition: Good Discharge Details Reason For Visit: egd/colon Attending Provider: Keerthi Wood Primary Care Provider: Keara Tian Home Meds and New Rx's Prescriptions: New Dexilant 30 mg capsule,biphase delayed releas 30 mg PO DAILY Qty: 30 RF: 12 Continued fexofenadine [Lidya Allergy] 180 mg tablet 180 mg PO DAILY RF: 0 atorvastatin 10 mg tablet 10 mg PO DAILY RF: 0 fluticasone propion-salmeterol [Advair Diskus] 250-50 mcg/dose blister with device 1 inh inhalation BID RF: 0 albuterol sulfate [ProAir HFA] 90 mcg/actuation HFA aerosol inhaler 2 puff inhalation Q6H PRNRF: 0 fluticasone propionate [Allergy Relief (fluticasone)] 50 mcg/actuation spray,suspension 1 spray intranasal BID RF: 0 pantoprazole [Protonix] 40 mg tablet,delayed release (DR/EC) 40 mg PO DAILY Qty: 30 RF: 12 clobetasol 0.05 % cream 1 applic topical DAILY PRNRF: 0 lisinopril 20 mg Tablet 20 mg PO HS RF: 0 bupropion HCl [Wellbutrin SR] 150 mg tablet sustained-release 12 hr 150 mg PO DAILY RF: 0 sucralfate [Carafate] 1 gram tablet 1 g PO QACHS Qty: 120 RF: 12 Discontinued polyethylene glycol 3350 17 gram/dose powder 238 g PO ONCE Qty: 238 RF: 0 bisacodyl [Dulcolax (bisacodyl)] 5 mg tablet,delayed release (DR/EC) 5 mg PO ONCE Qty: 4 RF: 0 Discharge Instructions Additional Instructions: DSU Colonoscopy Post-Op Instructions Instructions for Everyone who is given Anesthesia: For your safety, please do the following for the next twenty-four (24) hours: *Do Not operate a motor vehicle (car, truck, motorcycle, etc.) *Do Not drink alcoholic beverages or use any recreational drugs for the first 24 hours or while taking pain medications. The medications in your body may have a reaction that can be dangerous. *Do Not make any important decisions or sign any important papers. Findings:mild gastritis/esophagitis -x2 colon polyps -I am Sending aprescription for Dexilant to your pharmacy. I would like to switch you to from the Protonix to Dexilant. I do not know if your insurance company will pay for dexilant. If they will not pay for dexilant, please let my office know. If your insurance company will pay for, it then stop the Protonix and start the Dexilant -Continue with lifestyle modifications: no alcohol, tobacco products, Aspirin or NSAID's (ibuprofen, Motrin, Naprosyn, aleve, etc), soda pop/any carbonated beverages, caffeine (including tea & chocolate), and acidic foods, (tomatoes, citrus, onions, peppermints) spicy or fried/fatty foods. Do not lie down for 30 minutes after eating, and do not eat 2 hours prior to bedtime. Avoid wearing tight fitting clothing/ belts Follow up: My office will send a letter in 2 to 3 weeks time, detailing as to what types of polyps they were and when we want you to repeat the colonoscopy. 1. No lifting over 20 pounds or strenuous activity for the first 24 hours after your procedure. After 24 hours there are no restrictions on your activity but you may feel fatigued for a few days. 2. After you arrive home you may have a light meal and return to your normal diet as you can tolerate it without feeling sick to your stomach. 3. You may have a bloated, gaseous feeling in your belly (abdomen) after a colonoscopy. Passing gas and belching will help. Walking or lying down on your left side with your knees flexed may relieve the discomfort. Call the office at [phone] (Office) or [phone] (Hospital) right away if you notice any of the following: a.Vomiting of blood or ?coffee ground stools?. b.Rectal bleeding 1Tbsp, blood clots or continuous bleeding. c.Severe belly (abdominal) pain. d.A hard distended belly (abdomen) and an inability to pass gas. 4. Please don?t expect to have a normal BM (bowel movement) for 2-3 days after your procedure. 5. If there are questions regarding the findings of your procedure, please contact your doctor 6. If you are unable to contact your doctor with a problem, contact the hospital at [phone]. 7. Continue all your regular medications unless directed otherwise. I understand the above instructions and have no questions. Signature of Patient or Adult Escort Name of Responsible Adult Escort Signature of Nurse Date/Time Activity:: see above Diet:: see above Discharge Orders Discharge Orders: Discharge Order (Routine); Ordered 02/21/21 Ordered By: Keerthi Wood DS: Diagnosis Discharge Diagnosis (1) Globus sensation: Status: Acute (2) Tubulovillous adenoma: Status: Acute
--- NOTE | 2021-02-21 12:10 | ENDO_ITS ---
Date of service: 02/23/21 Endoscopy Report DATE OF PROCEDURE: 02/23/21 PRE-OP DIAGNOSIS: ulcers/globus sensation POST-OP DIAGNOSIS: other (Gastritis and esophagitis) SURGEON: Keerthi Wood ANESTHESIA TYPE: General:No Airway ESTIMATED BLOOD LOSS: 1 PATHOLOGY: other COMPLICATIONS: None DISPOSITION: same day PREP: Miralax/Dulcolax PROCEDURE DESCRIPTION: After informed consent was obtained the patient was take to the procedure room and placed in a supine position. Monitors were applied and a time out was done. The patients name, date of , procedure type, allergies to medications and metal in their body was reviewed. A bite block was placed and the patient was sedated. Once sedated and comfortable the gastroscope was advanced through the oropharynx which was grossly normal into the esophagus. The proximal and mid-esophagus were nl. In the distal esophagus there was some mild esophagitis noted. The scope was advanced into the stomach and through the pylorus into the 3rd portion of the duodenum. The duodenum was noted to be nl . Biopsies were done -all specimens are retrieved and no bleeding is noted. The scope was retracted back into the stomach and biopsies were done to rule out H. pylori. There were no varices, ulcers or diverticula present. The scope was retroflexed. The cardia and fundus were noted to be normal. There a very small <1cm hiatal hernias- sliding type noted. The scope was retracted back into the esophagus and biopsies were done of the GE junction to rule out Mackay's. The Z line was slightly irregular. The scope was removed and the patient was woken up and taken back to [facility] in stable condition. There is some mild gastritis noted in the antral region in a straight fashion. Biopsies are taken of this. Duodenum is normal -Change her PPI to Dexilant, pending insurance coverage. My office will send a letter with the biopsy results in 2 to 3 weeks time.
--- NOTE | 2021-02-21 12:10 | W.COLOREPORT ---
Colonoscopy Report Date of procedure: 02/23/21 Pre-op diagnosis general: TV of rectum Post-op diagnosis procedure note: other (Diverticula and polyps) Surgeon: Keerthi Wood Anesthesia Type: General:No Airway Estimated blood loss (mL): 1 Pathology: other Complications: None Prep: Miralax/Dulcolax Retraction Time: 9 Procedure Description: After informed consent was obtained the patient was taken to the procedure room and placed in a left decubitous position. Monitors were applied and a time out was done. The patients name, date of , procedure, allergies to medications and metal in their body was reviewed. The patient was then sedated. Once sedated and comfortable a rectal exam was done. External exam was normal. Internal exam revealed a normal sphincter tone and no palpable masses. The scope was then introduced and retrofelexed. No internal hemorrhoids were identified. The scope was then advanced to the cecum without difficulty. The TI and appendiceal orifice were identified. The prep was good. The scope was then slowly retracted over 9 minutes back into the rectum. She has mild diverticula confined to the sigmoid colon. There is no signs of active bleeding or infection. She had a 0.75 cm flat polyp at 20 cm. This is removed with a cold biting forcep in 2 bites. Scar from the previous large tubulovillous adenoma in the rectum was visualized. There is no signs of regrowth in this area. She does have an additional flat 5 mm polyp in the rectum that is removed with a cold biopsy forcep. The scope was removed and the patient was woken up and taken back to Same day surgery in stable condition. The patient tolerated the procedure well and there were no immediate complications. Follow up: The patient should follow up in 3-5 years unless they develop changes in bowel habits or other new gastrointestinal complaints.
--- NOTE | 2021-02-21 12:11 | PDOC.DSDIS_ITS ---
Discharge Plan Disposition Patient Disposition: HOME Condition: Good Discharge Details Reason For Visit: egd/colon Attending Provider: Keerthi Wood Primary Care Provider: Keara Tian Home Meds and New Rx's Prescriptions: New Dexilant 30 mg capsule,biphase delayed releas 30 mg PO DAILY Qty: 30 RF: 12 Continued fexofenadine [Lidya Allergy] 180 mg tablet 180 mg PO DAILY RF: 0 atorvastatin 10 mg tablet 10 mg PO DAILY RF: 0 fluticasone propion-salmeterol [Advair Diskus] 250-50 mcg/dose blister with device 1 inh inhalation BID RF: 0 albuterol sulfate [ProAir HFA] 90 mcg/actuation HFA aerosol inhaler 2 puff inhalation Q6H PRNRF: 0 fluticasone propionate [Allergy Relief (fluticasone)] 50 mcg/actuation spray,suspension 1 spray intranasal BID RF: 0 pantoprazole [Protonix] 40 mg tablet,delayed release (DR/EC) 40 mg PO DAILY Qty: 30 RF: 12 clobetasol 0.05 % cream 1 applic topical DAILY PRNRF: 0 lisinopril 20 mg Tablet 20 mg PO HS RF: 0 bupropion HCl [Wellbutrin SR] 150 mg tablet sustained-release 12 hr 150 mg PO DAILY RF: 0 sucralfate [Carafate] 1 gram tablet 1 g PO QACHS Qty: 120 RF: 12 Discontinued polyethylene glycol 3350 17 gram/dose powder 238 g PO ONCE Qty: 238 RF: 0 bisacodyl [Dulcolax (bisacodyl)] 5 mg tablet,delayed release (DR/EC) 5 mg PO ONCE Qty: 4 RF: 0 Discharge Instructions Additional Instructions: DSU Colonoscopy Post- Op Instructions Instructions for Everyone who is given Anesthesia: For your safety, please do the following for the next twenty-four (24) hours: *Do Not operate a motor vehicle (car, truck, motorcycle, etc.) *Do Not drink alcoholic beverages or use any recreational drugs for the first 24 hours or while taking pain medications. The medications in your body may have a reaction that can be dangerous. *Do Not make any important decisions or sign any important papers. Findings:mild gastritis/esophagitis -x2 colon polyps -I am Sending aprescription for Dexilant to your pharmacy. I would like to switch you to from the Protonix to Dexilant. I do not know if your insurance company will pay for dexilant. If they will not pay for dexilant, please let my office know. If your insurance company will pay for, it then stop the Protonix and start the Dexilant -Continue with lifestyle modifications: no alcohol, tobacco products, Aspirin or NSAID's (ibuprofen, Motrin, Naprosyn, aleve, etc), soda pop/any carbonated beverages, caffeine (including tea & chocolate), and acidic foods, (tomatoes, citrus, onions, peppermints) spicy or fried/fatty foods. Do not lie down for 30 minutes after eating, and do not eat 2 hours prior to bedtime. Avoid wearing tight fitting clothing/ belts Follow up: My office will send a letter in 2 to 3 weeks time, detailing as to what types of polyps they were and when we want you to repeat the colonoscopy. 1. No lifting over 20 pounds or strenuous activity for the first 24 hours after your procedure. After 24 hours there are no restrictions on your activity but you may feel fatigued for a few days. 2. After you arrive home you may have a light meal and return to your normal diet as you can tolerate it without feeling sick to your stomach. 3. You may have a bloated, gaseous feeling in your belly (abdomen) after a colonoscopy. Passing gas and belching will help. Walking or lying down on your left side with your knees flexed may relieve the discomfort. Call the office at [phone] (Office) or [phone] (Hospital) right away if you notice any of the following: a.Vomiting of blood or ?coffee ground stools?. b.Rectal bleeding 1Tbsp, blood clots or continuous bleeding. c.Severe belly (abdominal) pain. d.A hard distended belly (abdomen) and an inability to pass gas. 4. Please don?t expect to have a normal BM (bowel movement) for 2-3 days after y our procedure. 5. If there are questions regarding the findings of your procedure, please contact your doctor 6. If you are unable to contact your doctor with a problem, contact the hospital at [phone]. 7. Continue all your regular medications unless directed otherwise. I understand the above instructions and have no questions. Signature of Patient or Adult Escort Name of Responsible Adult Escort Signature of Nurse Date/Time Activity:: see above Diet:: see above Discharge Orders Discharge Orders: Discharge Order (Routine); Ordered 02/21/21 Ordered By: Keerthi Wood DS: Diagnosis Discharge Diagnosis (1) Globus sensation: Status: Acute (2) Tubulovillous adenoma: Status: Acute (3) Erosive esophagitis: Status: Acute (4) Gastritis determined by endoscopy: Status: Acute (5) PUD (peptic ulcer disease): Status: Chronic
[2021-02-23 07:20] VITALS: BP 185/93; PULSE 86; RESP 14; TEMP 37.2; O2SAT 99
[2021-02-23 07:35] VITALS: BP 150/87
[2021-02-23] MEDS: Lactated Ringers 1,000 ML 80 ML IV (07:46)
--- NOTE | 2021-02-23 07:59 | ANES.PREOP_ITS ---
General Info Date of Service Date Performed: 02/23/21 Height: 5 ft 9 in Weight: 70.3 kg Body Mass Index (BMI): 22.8 Surgical Procedure: Operation Date: 02/23/21 08:20 Proposed Procedures Side Surgeon p Colonoscopy/Gastroscopy Keerthi Wood, Meds Allergies and Home Medications Allergies Allergy/AdvReac Type Severity Reaction Status Date / Time Cephalosporins Allergy Intermediate Skin Rash Verified 02/23/21 07:28 Home Medication Medication Instructions Recorded lisinopril 20 mg PO HS 12/16/18 albuterol sulfate 90 mcg/actuation 2 puff INHALATION Q6H PRN 12/22/19 aerosol inhaler fluticasone 250 mcg-salmeterol 50 1 inh INHALATION BID 12/22/19 mcg/dose blistr powdr for inhalation fluticasone propionate 50 1 spray INTRANASAL BID 12/22/19 mcg/actuation nasal spray,suspension sucralfate [Carafate] 1 g PO QACHS #120 tab 01/03/20 pantoprazole 40 mg tablet,delayed 40 mg PO DAILY #30 tab 01/26/21 release atorvastatin 10 mg tablet 10 mg PO DAILY 02/13/21 bupropion HCl 150 mg tablet,12 hr 150 mg PO DAILY tab 02/13/21 sustained-release clobetasol 0.05 % topical cream 1 applic TOPICAL DAILY PRN 02/13/21 fexofenadine 180 mg tablet 180 mg PO DAILY 02/13/21 Current Visit Medications: Current Medications Generic Name Dose Route Start Last Admin Trade Name Freq PRN Reason Stop Dose Admin Hyoscyamine Sulfate 0.125 mg 02/21/21 12:05 Hyoscyamine 0.125 Mg Sl/Oral/Chew SL DIRECTED PRN Ringer's Solution 1,000 mls @ 80 mls/hr 02/23/21 06:00 02/23/21 07:46 IV 03/06/21 23:59 80 mls/hr INFUSION LAYNE Administration IV Miscellaneous Supplies 1 each 02/23/21 06:00 Iv Access IV 03/06/21 23:59 DIRECTED LAYNE Ondansetron HCl 4 mg 02/21/21 12:05 Ondansetron 4 Mg/2 Ml Vial IVP Q4H PRN PRN Nausea / Vomiting Sodium Chloride 0 ml 02/23/21 06:00 Normal Saline Flush 10 Ml Syr IV 03/06/21 23:59 PRN PRN Sodium Chloride 0 ml 02/23/21 06:00 Normal Saline 10 Ml Vial IJ 03/06/21 23:59 DIRECTED PRN Sterile Water 0 ml 02/23/21 06:00 Water,Injection,Sterile 10 Ml Vial IJ 03/06/21 23:59 DIRECTED PRN PFSH Active Problems Active Problems: Problem Status Onset Code Chronic rhinitis J31.0 Globus sensation R19.8 History of esophagogastroduodenoscopy (EGD) Z98.890 Carotid arterial disease I77.9 Dental infection K04.7 Hyperlipidemia E78.5 Hx of colonoscopy Z98.890 COPD (chronic obstructive pulmonary disease) J44.9 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 Adenomatous colon polyp D12.6 Diverticulosis K57.90 Erosive esophagitis K22.10 Gastritis determined by endoscopy K29.70 PUD (peptic ulcer disease) K27.9 Acute medial meniscus tear of left knee S83.242A Hollingsworth's cyst, ruptured 01/02/19 M66.0 Internal derangement of left knee M23.92 Hoarseness of voice R49.0 GERD (gastroesophageal reflux disease) K21.9 Weight gain R63.5 Fatigue R53.83 Medical History Medical History Adenomatous colon polyp Carotid arterial disease Chest congestion COPD (chronic obstructive pulmonary disease) Dental infection Diverticulosis Dysphagia Erosive esophagitis Fatigue Gastritis determined by endoscopy GERD (gastroesophageal reflux disease) Hoarseness of voice Hyperlipidemia Hypertension Lymphadenopathy Neck stiffness Pain of right thumb PUD (peptic ulcer disease) Recently quit using tobacco Sinus congestion Per pt. Constant nasal congestion since may 2019, Syncope and collapse 2019 Weight gain Medical History Comments:: Patient reports white coat syndrome Oral surgery 6 weeks ago. 0735 BP150/87 Surgical History Surgical History History of esophagogastroduodenoscopy (EGD) History of oral surgery 9 tooth extractions, bone grafts to prepare for implant Hx of colonoscopy Tobacco Smoking/Tobacco Use Status: Former Tobacco Use Tobacco: How many years used: 40 Alcohol Alcohol Intake: current Alcohol intake frequency: 0-2 drinks per day Alcohol type: beer Substance Use Substance use: Never Substance use type: does not use Vital Signs and Lab Results Vital Signs Most Recent Vital Signs in EMR: Most Recent Vital Signs Temp Pulse Resp BP Pulse Ox 37.2 C 86 14 150/87 H 99 02/23/21 07:20 02/23/21 07:20 02/23/21 07:20 02/23/21 07:35 02/23/21 07:20 Lab Results Blood Type / Crossmatch: No Data to Display Complete Blood Count: White Blood Count 5.75 10^3/uL (4.4-10.8) 01/29/21 07:36 01/29/21 Red Blood Count 3.71 10^6/uL (3.93-5.22) L 01/29/21 07:36 01/29/21 Hemoglobin 12.5 g/dL (11.2-15.7) 01/29/21 07:36 01/29/21 Hematocrit 35.8 % (36.0-46.0) L 01/29/21 07:36 01/29/21 Platelet Count 287 10^3/uL (130-400) 01/29/21 07:36 01/29/21 Complete Metabolic Panel: No Data to Display Liver Function Panel: 2 No Data to Display Coagulation Panel: No Data to Display Cardiac Panel: No Data to Display Arterial Blood Gas: No Data to Display Venous Blood Gas: No Data to Display Pancreas Panel: No Data to Display Thyroid Panel: No Data to Display Infectious Disease: Coronavirus (COVID-19)(PCR) Negative (Negative) 02/21/21 10:59 02/21/21 Coronavirus 2019 Source Nasal/Nares 02/21/21 10:59 02/21/21 Blood Cultures: No Data to Display Toxicology Panel: No Data to Display Anesthesia Assessment and Plan Anesthesia History Personal History: No History of Anesthesia Complications Family History: No Family History of Anesthesia Complications Exercise Tolerance Exercise Tolerance: Metabolic Equivalents>4 Pertinent Negatives Pertinent Negatives: No Major Cardiovascular Symptoms or Complaints, No Major Pulmonary Symptoms or Complaints and No History of CVA/TIA Cardiac & Pulmonary Exam Cardiac Exam: Normal S1/S2 Heart Sounds Pulmonary Exam: Clear Bilateral Breath Sounds Implantable Cardiac Device Does patient have a Pacemaker or an ICD?: No Airway Exam Known Difficult Airway: No Mallampati Class: 3 Mouth Opening: Narrow (< 3cm) Thyromental Distance: Less than 3 cm Neck Range of Motion: Full ROM Neck Circumference: Normal Teeth Condition: Normal Dentition ASA Classification ASA Score: ASA 2 Emergency Case?: No NPO Status NPO Status: NPO Clears >2 hours, Solids >8 hours Anesthesia Plan Resuscitation Status: Full Code Anesthesia Technique: General Anesthesia Airway Planned: Natural Airway Monitors Used: Standard Monitors
[2021-02-23 08:01] VITALS: BMI 22.8
--- NOTE | 2021-02-23 08:24 | W.PM.HP.N ---
Date of service: 02/23/21 Time of Service: 08:24 Assessment and Plan Assessment and plan (1) Globus sensation: Status: Acute Assessment and plan: Informed consent is obtained for the procedural (explained in simple layman's terms that the pt and/or family could understand) explaining risks vs benefits and alternatives to the procedure and consequences if we do not do the procedure and need/rational for the procedure. Risks include but are not limited to: bleeding, infection, perforation of esophagus, stomach, colon, small intestines, bronchus or trachea, or PTX. This would necessitate emergency surgery to repair the damage w/ possible ostomy; and other associated complications w/ the required surgery. Also complications of anesthesia including aspiration, AZ/CVA/. The planned EGD and CE today (2) Adenomatous colon polyp: Status: Acute (3) Diverticulosis: Status: Acute (4) Erosive esophagitis: Status: Acute (5) PUD (peptic ulcer disease): Status: Chronic (6) Weight gain: Status: Acute (7) GERD (gastroesophageal reflux disease): Status: Chronic (8) Hoarseness of voice: Status: Acute History of Present Illness Consults Consult date: 02/23/21 Narrative: PI Pt here for 1 year repeat colonoscopy, pt currently taking amoxicillin 500mg TID and prednisone for recent oral surgery. Pt will be done this prior to her colonoscopy. Pt has no concerns today with her bowels. Pt does state that her little sister just had her first colonoscopy a month ago and has stage 4 colon cancer, spread to her liver. Pts sister is 58 years old. Pt had a tubulovillous polyp in the rectum in . She is here today to discuss repeat colonoscopy. Denies problems with constipation, diarrhea. No pain or difficulty with bowel movements. Denies rectal bleeding. There is no family history of any colon cancer. Pt has not had any weight loss. Their appetite is good. No heart, lung, or kidney problems. No heartburn or indigestion. No prior colo-rectal surgery. No prior WALLY. No problems with anesthesia in the past. Patient has a history of: former smoker DM: no CVA/AZ: no CPAP use: no Blood thinners: no Kidney disease: no 02/23: Patient seen and examined. She denies any changes to her health status. She has no chest pain or shortness of breath today. She has no productive cough or fevers today. She completed her bowel prep and currently has no abdominal pain or nausea. The residue from the bowel prep is just a clear yellow. She has had no changes in medications or her health status in the past weeks. Patient had a history of a large 2 below villous in the rectum. She feels that her symptoms are pretty well controlled on PPI. She did have erosive esophagitis last. She still is occasionally getting breakthrough episodes and we will plan on repeating colonoscopy and EGD today. 12/25: The scope was then introduced and retrofelexed. No internal hemorrhoids were identified. The scope was then advanced to the cecum w/out difficulty. The TI and appendiceal orifice were identified. The prep was good. The scope was then slowly retracted over 12 minutes back into the rectum. Polyps were removed: She had a large greater than 1 cm polyp removed from the rectum. It was removed with a hot snare. Specimen was retrieved and no bleeding is noted. She does have a few small large mouth diverticula. Majority of these are confined to the sigmoid colon. But she does have a few diverticula that carry all the way over to the right side. There are no signs of active bleeding or infection. The mucosa is otherwise pink and healthy, as is the vasculature.. The scope was removed and the patient was woken up and taken back to Same day surgery in stable condition. Review of Systems All systems reviewed & are unremarkable except as noted in HPI and below PFSH Medical History Adenomatous colon polyp Carotid arterial disease Chest congestion COPD (chronic obstructive pulmonary disease) Dental infection Diverticulosis Dysphagia Erosive esophagitis Fatigue Gastritis determined by endoscopy GERD (gastroesophageal reflux disease) Hoarseness of voice Hyperlipidemia Hypertension Lymphadenopathy Neck stiffness Pain of right thumb PUD (peptic ulcer disease) Recently quit using tobacco Sinus congestion Per pt. Constant nasal congestion since may 2019, Syncope and collapse 2019 Weight gain Surgical History History of esophagogastroduodenoscopy (EGD) History of oral surgery 9 tooth extractions, bone grafts to prepare for implant Hx of colonoscopy Family History Father Diabetes Sister Colon cancer Liver cancer Other Hypertension Social History Smoking/Tobacco Use Status: Former Tobacco Use Quit Date: 05/08/19 Tobacco: How many years used: 40 Smoking risk assessment performed?: Yes Alcohol Intake: current Alcohol Intake frequency: 0-2 drinks per day Alcohol type: beer Drug use: Never Substance use type: does not use Current gender identity: female Do you feel safe at home: Yes Do you feel safe in your relationship?: Yes Meds Allergies and Home Medications Allergies Allergy/AdvReac Type Severity Reaction Status Date / Time Cephalosporins Allergy Intermediate Skin Rash Verified 02/23/21 07:28 Home Medications Medication Instructions Recorded Confirmed Type lisinopril 20 mg PO HS 12/16/18 02/23/21 History albuterol sulfate 90 mcg/actuation 2 puff INHALATION Q6H PRN 12/22/19 02/23/21 History aerosol inhaler fluticasone 250 mcg-salmeterol 50 1 inh INHALATION BID 12/22/19 02/23/21 History mcg/dose blistr powdr for inhalation fluticasone propionate 50 1 spray INTRANASAL BID 12/22/19 02/23/21 History mcg/actuation nasal spray,suspension sucralfate [Carafate] 1 g PO QACHS #120 tab 01/03/20 02/23/21 Rx pantoprazole 40 mg tablet,delayed 40 mg PO DAILY #30 tab 01/26/21 02/23/21 Rx release atorvastatin 10 mg tablet 10 mg PO DAILY 02/13/21 02/23/21 History bupropion HCl 150 mg tablet,12 hr 150 mg PO DAILY tab 02/13/21 02/23/21 History sustained-release clobetasol 0.05 % topical cream 1 applic TOPICAL DAILY PRN 02/13/21 02/22/21 History fexofenadine 180 mg tablet 180 mg PO DAILY 02/13/21 02/23/21 History Exam Const General: cooperative, healthy appearing, comfortable, no acute distress, well developed and well groomed Nutritional Appearance: average body habitus and well nourished Orientation: alert, awake and oriented x3 HENMT Head: normal to inspection, normocephalic and atraumatic Ears: hearing grossly normal bilaterally and external ears normal General nose exam: external nose normal Face and sinus: normal facial exam and sinuses nontender Mouth: oral mucosae normal, lip normal, tongue normal and moist mucous membranes Teeth and gingiva: dentition normal Eyes General: appearance normal, both eyes and all related structures Conjunctivae: conjunctivae normal Sclera: sclerae normal Pupils: PERRL Neck Neck: normal visual inspection and full ROM Chest Chest: normal inspection of the chest Resp Effort & Inspection: normal respiratory effort, able to speak in complete sentences, no cough, no nasal flaring, not tachypneic and no use of accessory muscles Auscultation: clear to auscultation bilaterally, no rales, no rhonchi and no wheezes Cardio Jugular venous pressure: no JVD Rate: regular rate Rhythm: regular rhythm GI Inspection: normal to inspection, no edema and non-distended Palpation: soft, no masses, nontender and No ascites Auscultation: normal bowel sounds Skin General skin exam: no rashes or lesions noted Trauma: no lacerations or abrasions Neuro General: patient alert, patient oriented x3, oriented, gait normal, moves all extremities, no focal motor deficits and CN's II-XI intact bilaterally Cognition: normal cognition Speech: speech normal Gait: normal gait Motor: muscle tone normal throughout Extrem General: normal to inspection, full ROM and no clubbing, cyanosis or edema Psych Appearance: grossly normal and well kempt Mental Status: mental status grossly normal Speech and Movement: speech and movement normal Affect: normal affect Results Last Vital Signs Temp 37.2 C 02/23/21 07:20 Pulse 86 02/23/21 07:20 Resp 14 02/23/21 07:20 BP 150/87 H 02/23/21 07:35 Pulse Ox 99 02/23/21 07:20
--- NOTE | 2021-02-23 08:50 | BOWEL_PTH ---
PATIENT: Ling Chandra LOC: [facility] U#:[id number] AGE/SX: 61/F ROOM: RE02/23/[address]: Keerthi Wood : 1960 BED: DIS: 02/23/2021 SPEC #: [id number] RECD: 02/23/21 12:19 STATUS: JOHNNY REAlbino #: [id number] LISA: 02/23/21 08:[address]: Keerthi Wood DEPT: Surgical Specimen RECD BY: Shital Mendosa ENTERED: 02/23/21 12:24 SP TYPE: Bowel OTHR DR: Keara Tian Tissues: 1 - BIOPSY BOWEL 2 - BIOPSY BOWEL 3 - STOMACH BIOPSY 4 - STOMACH BIOPSY 5 - ESOPHAGUS BIOPSY 6 - ESOPHAGUS BIOPSY 7 - BIOPSY BOWEL 8 - BIOPSY BOWEL Procedures: GROSS AND MICRO LEVEL 4 Comments: [id number]
[2021-02-23 09:34] VITALS: BP 112/63; PULSE 71; RESP 16; TEMP 36.3; O2SAT 96
--- NOTE | 2021-02-23 09:41 | W.ANESPOSTOP ---
Postoperative Evaluation Date, Time and Location Date Performed: 02/23/21 Time Performed: 09:34 Patient Location: Day Surgery Unit Vital Signs Most Recent Imported Vital Signs: Most Recent Vital Signs Temp Pulse Resp BP Pulse Ox 36.3 C L 71 16 112/63 96 02/23/21 09:34 02/23/21 09:34 02/23/21 09:34 02/23/21 09:34 02/23/21 09:34 Pain Score Most Recent Pain Score: Most Recent Pain Score Pain Level 0 02/23/21 09:34 Assessment Mental Status: Awake (Alert & Oriented to Patient Baseline) Airway and Respiratory Function: Patent airway with normal (patient baseline) respiratory exam Cardiovascular Function: Hemodynamically Stable Hydration Status: Adequately Hydrated Nausea & Vomiting: No Nausea or Vomiting Pain: Pt. Denies Any Pain Peripheral Nerve Block: Regional nerve block not resolved at time of post operative discharge
[2021-02-23 10:05] VITALS: BP 138/81; PULSE 66; RESP 16; TEMP 36; O2SAT 99
== END 2021-02-23 10:25 | disposition home or self-care (01) ==
PROVIDERS: PCP Family Medicine; Visit Provider Surgery
PROC: (CPT 45385; principal; 2021-02-23 08:15)
DX: K29.70 Gastritis, unspecified, without bleeding (principal); K20.90 Esophagitis, unspecified without bleeding; K57.30 Diverticulosis of large intestine without perforation or abscess without bleeding; K62.1 Rectal polyp; K63.89 Other specified diseases of intestine
CPT/HCPCS: 45385; 43239; 88305

== ENCOUNTER 2021-03-12 08:31 | Outpatient (REF) | payer BC, OTHER, SELFPAY ==
[2021-03-12 16:16] LABS: ALT 61 U/L (14-59); AST 26 U/L (15-37); Albumin 4.1 g/dL (3.4-5.0); Alkaline Phosphatase 54 U/L (46-116); Bilirubin, Total 0.3 mg/dL (0.2-1.0); Calculated LDL 86 mg/dL (<100); Cholesterol 161 mg/dL (<200); HDL Cholesterol 56 mg/dL (40-60); Total Protein 6.6 g/dL (6.4-8.2); Triglyceride 96 mg/dL (<150)
[2021-03-12 18:39] LABS: Bilirubin, Direct 0.1 mg/dL (0.0-0.2)
== END 2021-03-12 08:32 | disposition home or self-care (01) ==
LOC: NCHCN 08:31
PROVIDERS: PCP Family Medicine; Visit Provider Family Medicine
DX: I10 Essential (primary) hypertension (principal); E78.5 Hyperlipidemia, unspecified; Z00.00 Encounter for general adult medical examination without abnormal findings
CPT/HCPCS: 80061; 80076

== ENCOUNTER 2022-08-06 13:19 | Outpatient (CLI) | payer BC, OTHER, SELFPAY ==
--- NOTE | 2022-08-06 13:15 | DI.RAD_ITS ---
Exam(s) XR HAND RT COMPLETE EXAM: XR HAND RT COMPLETE CLINICAL HISTORY: right thumb pain. TECHNIQUE: 2D digital imaging was performed. COMPARISON: No exams were available for comparison FINDINGS: 3 views No evidence of fracture nor subluxation. No radiopaque foreign bodies. No soft tissue calcification s. Advanced degenerative changes at the 1st carpometacarpal joint are noted. No erosions. IMPRESSION: Advanced degenerative changes at the 1st carpometacarpal joint. DATA REPOSITORY: RADIATION DOSE DELIVERED:
== END 2022-08-06 13:20 | disposition home or self-care (01) ==
LOC: DIORS 13:19
PROVIDERS: PCP Family Medicine; Referring Provider Family Medicine; Visit Provider Student in an Organized Health Care Education/Training Program
DX: M79.644 Pain in right finger(s) (principal); M18.11 Unilateral primary osteoarthritis of first carpometacarpal joint, right hand
CPT/HCPCS: 73130

== ENCOUNTER 2023-11-03 17:07 | Outpatient (REF) | payer BC, OTHER, SELFPAY ==
[2023-11-03 14:36] LABS: Abs Immature Grans 0.02 10^3/uL (0.0-0.06); Absolute Basophil Count 0.07 10^3/uL (0.0-0.2); Absolute Eosinophil Count 0.15 10^3/uL (0.0-0.7); Absolute Lymphocyte Count 1.67 10^3/uL (1.2-3.4); Absolute Monocyte Count 0.46 10^3/uL (0.1-0.8); Absolute Neutrophil Count 4.42 10^3/uL (1.2-6.7); Eosinophils % 2.2 %; HCT 41.6 % (36.0-46.0); HGB 14.8 g/dL (11.2-15.7); Immature Grans % 0.3 %; Lymphocytes % 24.6 %; MCH 33.8 pg (27.0-33.0); MCHC 35.6 % (32.0-36.0); MCV 95 fL (80-95); MPV 9.7 fL (8.0-11.0); Monocytes % 6.8 %; Neutrophils % 65.1 %; Platelet Count 276 10^3/uL (130-400); RBC 4.38 10^6/uL (3.93-5.22); RDW 11.9 % (11.7-14.6); RDW-SD 41.7 fL; WBC 6.79 10^3/uL (4.4-10.8)
[2023-11-03 15:13] LABS: ALT 56 U/L (14-59); AST 18 U/L (15-37); Albumin 4.2 g/dL (3.4-5.0); Alkaline Phosphatase 75 U/L (46-116); Anion Gap 13.3 mmol/L (3-11); BUN 14 mg/dL (7-18); Bilirubin, Total 0.58 mg/dL (0.2-1.0); CO2 23.7 mmol/L (21.0-32.0); CREATININE 0.9 mg/dL (0.55-1.02); Calcium 9.1 mg/dL (8.5-10.1); Calculated LDL 77 mg/dL (<100); Chloride 105 mmol/L (98-107); Cholesterol 162 mg/dL (<200); Estimated GFR 72.28 (mL/min/1.73m2); Glucose 103 mg/dL (74-106); HDL Cholesterol 55 mg/dL (40-60); Potassium 3.9 mmol/L (3.5-5.1); Sodium 142 mmol/L (136-145); Total Protein 7.1 g/dL (6.4-8.2); Triglyceride 150 mg/dL (<150); Vitamin D 25 Total 46.1 ng/mL (30-100)
== END 2023-11-03 17:08 | disposition home or self-care (01) ==
LOC: NCHCN 17:07
PROVIDERS: PCP Family Medicine; Visit Provider Family Medicine
DX: E78.5 Hyperlipidemia, unspecified (principal); K21.9 Gastro-esophageal reflux disease without esophagitis; E55.9 Vitamin D deficiency, unspecified
CPT/HCPCS: 80053; 80061; 82306; 85025

== ENCOUNTER 2024-07-07 15:03 | Outpatient (CLI) | payer BC, SELFPAY ==
--- NOTE | 2024-07-07 12:45 | DI.RAD_ITS ---
Exam(s) XR KNEE LT 2V AP,LAT EXAM: XR KNEE LT 2V AP,LAT CLINICAL HISTORY: LEFT KNEE PAIN. TECHNIQUE: 2D digital imaging was performed of the left knee. Two images were obtained. AP and lat eral views were obtained. COMPARISON: CR XR KNEE LT 3V AP,LAT,MONA from 02/03/2019 FINDINGS: BONES: No acute fracture is present. No bony destructive lesion is seen. JOINTS: There are small osteophytes at the posterior patella. No joint effusion is seen. No loose toney dy. SOFT TISSUE: Normal. IMPRESSION: Minimal degenerative changes in the left knee. DATA REPOSITORY: RADIATION DOSE DELIVERED:
== END 2024-07-07 15:04 | disposition home or self-care (01) ==
LOC: DIORS 15:03
PROVIDERS: PCP Family Medicine; Visit Provider Student in an Organized Health Care Education/Training Program
DX: M25.562 Pain in left knee (principal)
CPT/HCPCS: 73560

== ENCOUNTER 2024-11-01 13:04 | Outpatient (REF) | payer BC, OTHER, SELFPAY ==
[2024-11-01 16:52] LABS: ALT 45 U/L (14-59); AST 19 U/L (15-37); Albumin 4.2 g/dL (3.4-5.0); Alkaline Phosphatase 78 U/L (46-116); Anion Gap 11.9 mmol/L (3-11); BUN 16 mg/dL (7-18); Bilirubin, Total 0.4 mg/dL (0.2-1.0); CO2 27.1 mmol/L (21.0-32.0); Calcium 9.4 mg/dL (8.5-10.1); Calculated LDL 69 mg/dL (<100); Chloride 104 mmol/L (98-107); Cholesterol 152 mg/dL (<200); Estimated GFR 97.12 (mL/min/1.73m2); Glucose 115 mg/dL (74-106); HDL Cholesterol 48 mg/dL (>or=50); Potassium 4.3 mmol/L (3.5-5.1); Sodium 143 mmol/L (136-145); Total Protein 6.9 g/dL (6.4-8.2); Triglyceride 177 mg/dL (<150); Vitamin D 25 Total 48 ng/mL (30-100)
== END 2024-11-01 13:05 | disposition home or self-care (01) ==
LOC: NCHCN 13:04
PROVIDERS: PCP Family Medicine; Visit Provider Family Medicine
DX: I10 Essential (primary) hypertension (principal); E78.5 Hyperlipidemia, unspecified; E55.9 Vitamin D deficiency, unspecified
CPT/HCPCS: 80053; 80061; 82306